=== PATIENT | female | born 1955 | race Caucasian/White ===

== ENCOUNTER 2023-10-29 09:15 | Outpatient (OUT) | payer OTHER, SELFPAY ==
[2023-10-29 09:55] LABS: Basophils Percent Auto 0.4 % (0.2-2.0); Eosinophils Absolute Auto 0.1 10^3/uL (0.0-0.7); Eosinophils Percent Auto 0.9 % (0.9-7.0); Hematocrit 40.8 % (36.0-48.0); Hemoglobin 12.8 g/dL (12.0-16.0); Immature Granulocytes Abs Auto 0.01 10^3/uL (0.00-0.03); Immature Granulocytes Pct Auto 0.1 % (0.0-0.5); Lymphocytes Absolute Auto 1.7 10^3/uL (1.2-3.8); Lymphocytes Percent Auto 24.8 % (20.5-60.0); Mean Corpuscular HGB Conc 31.4 g/dL (29.9-35.2); Mean Corpuscular Hemoglobin 25.8 pg (26.7-34.0); Mean Corpuscular Volume 82.3 fL (81.0-99.0); Mean Platelet Volume 10.9 fL (9.5-13.5); Monocytes Absolute Auto 0.4 10^3/uL (0.3-0.8); Monocytes Percent Auto 5.9 % (1.7-12.0); Neutrophils Absolute Auto 4.7 10^3/uL (1.4-6.5); Neutrophils Percent Auto 67.9 % (43.0-75.0); Platelet Count 221 10^3/uL (150-450); Red Blood Count 4.96 10^6/uL (4.20-5.40); Red Cell Distribution Width 14.2 % (11.0-15.0)
[2023-10-29 10:30] LABS: Microalbumin Urine Random <1.3 mg/dL (<=30.0)
[2023-10-29 10:46] LABS: Alanine Aminotransferase 18 U/L (14-59); Albumin Globulin Ratio 0.9; Albumin Level 3.7 g/dL (3.4-5.0); Alkaline Phosphatase 117 U/L (46-116); Anion Gap 8.8; Aspartate Amino Transferase 18 U/L (15-37); Bilirubin Total 0.4 mg/dL (0.2-1.0); Calcium 9.5 mg/dL (8.5-10.1); Carbon Dioxide 34.3 mmol/L (21.0-32.0); Chloride 97 mmol/L (98-107); Chol HDL Ratio 3.4; Cholesterol 178 mg/dL (<=200); Estimated GFR (African America >60 (>=60); Estimated GFR (Non-African Ame >60 (>=60); Globulin 4.1 g/dL; Glucose 114 mg/dL (74-106); HDL Cholesterol 53 mg/dL (40-60); LDL Cholesterol Calculated 105.6 mg/dL; Potassium 3.1 mmol/L (3.5-5.1); Sodium 137 mmol/L (136-145); Thyroid Stimulating Hormone 2.166 uIU/mL (0.358-3.740); Total Protein 7.8 g/dL (6.4-8.2); Triglycerides 97 mg/dL (<=150); VLDL CHOLESTEROL 19.4 mg/dL
[2023-10-29 14:09] LABS: Free T4 1.31 ng/dL (0.76-1.46)
== END 2023-10-29 09:16 | disposition home or self-care (01) ==
LOC: LAB 09:18
PROVIDERS: PCP Family Medicine; Visit Provider Family Medicine
DX: D64.9 Anemia, unspecified (principal); E03.9 Hypothyroidism, unspecified; I10 Essential (primary) hypertension
CPT/HCPCS: 36415; 80053; 80061; 82043; 82728; 84439; 84443; 85025

== ENCOUNTER 2024-07-28 09:49 | Outpatient (OUT) | payer MEDICARE, SELFPAY ==
--- OUTSIDE RECORDS SUMMARY | 2024-07-28 09:55 | XMS_ITS | CCD ---
Author Organization [facility] Care Team Providers Care Vessel Slagman Name Role Phone DR ANGLE NICOLAS Admitting Unavailable MARION, DR ANGLE Conteh Primary Care Unavailable MARION, DR ANGLE Conteh Consulting Unavailable MARION, DR ANGLE Conteh Attending Unavailable MARION, DR ANGLE Conteh Admitting Unavailable MARION, DR ANGLE Conteh Primary Care Unavailable MARION, DR ANGLE Conteh Consulting Unavailable MARION, DR ANGLE Conteh Attending Unavailable ANGLE NICOLAS Primary Care Physician MD Angle Nicolas Primary Care Provider [phone] [facility]- Paola Conteh Emergency Provider Paola Banks Admitting Unavailable Paola Banks Attending Unavailable Angle Nicolas Primary Care Unavailable Allergies Allergy Classification Reported Allergen(s) Allergy Type Date of Onset Reaction(s) Facility Penicillins (antibiotic) (2 sources) Penicillin G Benzathine Drug Allergy 4 Rash, Unknown Reaction [facility] Sulfonamides (antibiotic) (2 sources) Sulfonamides (Antibiotic) Drug Allergy 4 Unknown Reaction [facility] (5 sources) Penicillins; Translations: [penicillins] Drug allergy 4 Unknown (qualifier value) [facility] (4 sources) Penicillin G Benzathine; Translations: [penicillin G benzathine] Allergy to substance 4 Rash [facility] (4 sources) Sulfacetamide; Translations: [sulfacetamide] Drug Allergy 4 Unknown Reaction [facility] (4 sources) Sulfonamides (Antibiotic); Translations: [Sulfa (Sulfonamide Antibiotics)] Allergy to substance 4 Unknown Reaction [facility] Medications Current Medications Medication Drug Class(es) Dates Sig (Normalized) Sig (Original) atorvastatin 40 mg oral tablet (8 sources) HMG-CoA Reductase Inhibitor Start: 11-14-2023 End: 05-08-2024 take 1 tablet by mouth once daily Atorvastatin 40 mg tablet Active 0 .ROUTE .COMPLEX May 08, 2024 1:12pm Take 1 tablet by mouth once daily Start: 10-24-2023 End: 11-14-2023 take 1 tablet by mouth once daily Atorvastatin 40 mg tablet Discontinued 40 MG PO Daily October 23, 2023 11:00pm November 14, 2023 11:31am levothyroxine sodium 0.088 mg oral tablet (9 sources) l-Thyroxine Start: 11-07-2023 End: 05-13-2024 take 1 tablet by mouth once daily in the morning Levothyroxine 88 mcg tablet Active 0 .ROUTE .COMPLEX May 13, 2024 12:57pm TAKE 1 TABLET BY MOUTH ONCE DAILY IN THE MORNING Start: 10-24-2023 End: 11-07-2023 take 1 tablet by mouth once daily Levothyroxine 88 mcg tablet Discontinued 88 MCG PO Daily October 23, 2023 11:00pm November 07, 2023 12:48pm Start: 11-10-2014 take 1 tablet by luke th once daily levothyroxine 50 mcg (0.05 mg) Tab 50 microgram = 1 tab(s), Oral, Daily, Refills(s) 0 Start Date: 11/10/14 Status: Ordered losartan potassium 50 mg oral tablet (7 sources) Angiotensin 2 Receptor Marquita Start: 05-05-2024 End: 07-07-2024 take 1 tablet by mouth once daily Losartan 50 mg tablet Active 0 .ROUTE .COMPLEX July 07, 2024 12:44pm Take 1 tablet by mouth once daily Start: 10-29-2023 End: 05-05-2024 take 1 tablet by mouth once daily Losartan 50 mg tablet Discontinued 50 MG PO daily January 17, 2024 9:31am May 05, 2024 4:39pm Completed/Discontinued Medications Medication Drug Class(es) Dates Sig (Normalized) Sig (Original) dexamethasone 1 mg/ml / neomycin 3.5 mg/ml / polymyxin b 92503 unt/ml ophthalmic suspension (4 sources) Aminoglycoside Antibacterial, Polymyxin-class Antibacterial, Corticosteroid Start: 10-24-19 End: 12-31-19 take 1 drop(s) into the eye(s) every three hours Neomycin-Polymyxin B-Dexameth (Maxitrol) 3.5mg/mL-10,000 unit/mL-0.1 % drops,suspension Discontinued 1 DROPS EYE-RIGHT Every three hours 5 October 23, 2023 11:00pm December 31, 2023 7:55am hydroCHLOROthiazide 25 mg oral tablet (4 sources) Thiazide Diuretic Start: 10-24-19 End: 12-31-19 take 1 tablet by mouth once daily in the morning Hydrochlorothiazide 25 mg tablet Discontinued 25 MG PO Every morning October 23, 2023 11:00pm December 31, 2023 7:58am polyethylene glycol 3350 with electrolytes Oral Pwdr for Cathy 4000 mL (GoLytely) (1 source) Start: 11-12-19 polyethylene glycol 3350 with electrolytes Oral Pwdr for Cathy 4000 mL (GoLytely) 240 mL, Oral, q10min, 1 EA, Refill(s) 0 Start Date: 11/11/14 Status: Ordered Semaglutide (Weight Loss) (2 sources) Start: 12-31-19 End: 07-28-19 Semaglutide (Weight Loss) (Wegovy) 0.25 mg/0.5 mL pen injector Discontinued 0.25 MG SUBCUT every week 2 December 30, 2023 11:00pm July 28, 2024 9:07am administer weeks 1 through 4 of therapy Start: 12-31-2023 Semaglutide (W eight Loss) (Wegovy) 0.25 mg/0.5 mL pen injector Active 0.25 MG SUBCUT every week 2 December 31, 2023 12:00am administer weeks 1 through 4 of therapy Problems Active Problems Problem Classification Problem Date Documented Date Episodic/Chronic Deficiency and other anemia (3 sources) Anemia; Translations: [Anemia, unspecified] 10-29-2023 Episodic Diabetes mellitus without complication (1 source) Other abnormal glucose; Translations: [OTHER ABNORMAL GLUCOSE] Onset: 07-14-2021 Episodic Disorders of lipid metabolism (5 sources) Hyperlipidemia, unspecified; Translations: [HYPERLIPIDEMIA UNSPECIFIED] Onset: 10-27-2020 Chronic Essential hypertension (10 sources) Essential (primary) hypertension; Translations: [Hypertensive disorder] Onset: 07-14-2021 10-24-2023 Chronic Inflammation; infection of eye (except that caused by tuberculosis or sexually transmitteddisease) (4 sources) Conjunctivitis of right eye; Translations: [Unspecified conjunctivitis] 10-24-2023 Episodic Other nutritional; endocrine; and metabolic disorders (2 sources) Severe obesity; Translations: [Morbid (severe) obesity due to excess calories] 12-31-2023 Chronic Other nutritional; endocrine; and metabolic disorders (1 source) Morbid (severe) obesity due to excess calories; Translations: [Morbid obesity] 12-31-2023 Chronic Other screening for suspected conditions (not mental disorders or infectious disease) (2 sources) Patient encounter status; Translations: [Encounter for screening mammogram for malignant neoplasm of breast] 07-28-2024 Episodic Other upper respiratory disease (4 sources) Bleeding from nose; Translations: [Epistaxis] 10-24-2023 Episodic Other upper respiratory disease (2 sources) Epistaxis; Translations: [Epistaxis] Onset: 10-24-2023 10-29-2023 Episodic Thyroid disorders (11 sources) Hypothyroidism, unspecified; Translations: [Hypothyroidism] Onset: 07-08-2021 Chronic Past or Other Problems Problem Classification Problem Date Documented Da te Episodic/Chronic Unclassified (1 source) Exposure to 2019 novel coronavirus; Translations: [Contact with and (suspected) exposure to COVID19] Results Test Name Value Interpretation Reference Range Facility Basophils Auto (Bld) [#/Vol] on 10-29-2023 Basophils (Bld) [#/Vol] 0.0 10 3/uL 0.0-0.1 [facility] Basophils/100 WBC Auto (Bld) on 10-29-2023 Basophils/100 WBC (Bld) 0.4 % 0.2-2.0 [facility] Cholesterol in LDL Calc [Mas s/Vol]on 10-29-2023 Cholesterol in LDL [Mass/Vol] 105.6 mg/dL [facility] Comment on above: <100 mg/dl [id number] 0-129 mg/dl NEAR OR ABOVE [id number] mg/dl BORDERLINE MYJZ502-646 mg/dl HIGH>190 mg/dl VERY HIGH Cholesterol in VLDL Calc [Ma ss/Vol]on 10-29-2023 Cholesterol in VLDL [Mass/Vol] 19.4 mg/dL [facility] Eosinophils/100 WBC Auto (Bl d)on 10-29-2023 Eosinophils/100 WBC (Bld) 0.9 % 0.9-7.0 [facility] Erythrocyte distribution wid th Auto (RBC) [Ratio]on 10-29-2023 Erythrocyte distribution width (RBC) [Ratio] 14.2 % 11.0-15.0 [facility] Estimated glomerular filtrat ion rate (GFR) non- Americanon 10-29-2023 GFR/1.73 sq M.predicted among non-blacks MDRD (S/P/Bld) [Vol rate/Area] mL/min/{1.73_m2} >=60 [facility] Globulin Calc (S) [Mass/Vol] on 10-29-2023 Globulin (S) [Mass/Vol] 4.1 g/dL [facility] Hematocrit Auto (Bld) [Volum e fraction]on 10-29-2023 Hematocrit (Bld) [Volume fraction] 40.8 % 36.0-48.0 [facility] Hemoglobin [Mass/volume] in Bloodon 10-29-2023 Hemoglobin (Bld) [Mass/Vol] 12.8 g/dL 12.0-16.0 [facility] Laboratory - Chemistry and C hemistry - challengeon 10-29-2023 Albumin [Mass/Vol] 3.7 g/dL 3.4-5.0 [facility] ALP [Catalytic activity/Vol] 117 U/L High 46-116 [facility] ALT [Catalytic activity/Vol] 18 U/L 14-59 [facility] AST [Catalytic activity/Vol] 18 U/L 15-37 [facility] Bilirubin [Mass/Vol] 0.4 mg/dL 0.2-1.0 [facility] Calcium [Mass/Vol] 9.5 mg/dL 8.5-10.1 [facility] Chloride [Moles/Vol] 97 mmol/L Low 98-107 [facility] Cholesterol [Mass/Vol] 178 mg/dL <=200 [facility] Cholesterol in HDL [Mass/Vol] 53 mg/dL 40-60 [facility] Comment on above: > or =60 mg/dl - LOW CARDIOVASCULAR RISK<40 mg/dl - HIGH CARDIOVASCULAR RISK CO2 [Moles/Vol] 34.3 mmol/L High 21.0-32.0 [facility] Creatinine [Mass/Vol] 0.80 mg/dL 0.55-1.[address] [facility] Ferritin [Mass/Vol] 54.0 ng/mL 8.0-252.0 [facility] Free T4 [Mass/Vol] 1.31 ng/dL 0.76-1.46 [facility] GFR/1.73 sq M.predicted MDRD (S/P/Bld) [Vol rate/Area] mL/min/{1.73_m2} >=60 [facility] Glucose [Mass/Vol] 114 mg/dL High 74-106 [facility] Potassium [Moles/Vol] 3.1 mmol/L Low 3.5-5.[address] [facility] Protein [Mass/Vol] 7.8 g/dL 6.4-8.2 [facility] Sodium [Moles/Vol] 137 mmol/L 136-145 [facility] Triglyceride [Mass/Vol] 97 mg/dL <=150 [facility] TSH Qn 2.166 m[IU]/L 0.358-3.740 [facility] Urea nitrogen [Mass/Vol] 12.0 mg/dL 7.0-18.0 [facility] Urea nitrogen/Creatinine [Mass ratio] 15.0 mg/mg [facility] - Hematology and Cell countson 10-29-2023 Immature granulocytes/100 WBC (Bld) 0.1 % 0.0-0.5 [facility] Leukocytes [#/volume] correc brandon for nucleated erythrocytes in Blood by Automated counon 10-29-2023 WBC corrected for nucl RBC Auto (Bld) [#/Vol] 7.0 10 3/uL 4.0-11.0 [facility] Lymphocytes Auto (Bld) [#/Vo l]on 10-29-2023 Lymphocytes (Bld) [#/Vol] 1.7 10 3/uL 1.2-3.8 [facility] Lymphocytes/100 WBC Auto (Bl d)on 10-29-2023 Lymphocytes/100 WBC (Bld) 24.8 % 20.5-60.0 [facility] MCH Auto (RBC) [Entitic mass ]on 10-29-2023 MCH (RBC) [Entitic mass] 25.8 pg Low 26.7-34.0 [facility] MCHC Auto (RBC) [Mass/Vol]on 10-29-2023 MCHC (RBC) [Mass/Vol] 31.4 g/dL 29.9-35.[address] [facility] MCV Auto (RBC) [Entitic vol] on 10-29-2023 MCV (RBC) [Entitic vol] 82.3 fL 81.0-99.0 [facility] Microalbumin [Mass/volume] i n Urineon 10-29-2023 Albumin DL <= 20 mg/L (U) [Mass/Vol] mg/dL <=30.0 [facility] Monocytes Auto (Bld) [#/Vol] on 10-29-2023 Monocytes (Bld) [#/Vol] 0.4 10 3/uL 0.3-0.8 [facility] Monocytes/100 WBC Auto (Bld) on 10-29-2023 Monocytes/100 WBC (Bld) 5.9 % 1.7-12.0 [facility] Neutrophils Auto (Bld) [#/Vo l]on 10-29-2023 Neutrophils (Bld) [#/Vol] 4.7 10 3/uL 1.4-6.5 [facility] Neutrophils/100 WBC Auto (Bl d)on 10-29-2023 Neutrophils/100 WBC (Bld) 67.9 % 43.0-75.0 [facility] No Panel Informationon 10-28 Eosinophils # (Auto) 0.1 10 3/uL 0.0-0.[address] [facility] Immature Granulocyte # (Auto) 0.01 10 3/uL 0.00-0.03 [facility] Platelet mean volume Auto (B ld) [Entitic vol]on 10-29-2023 Platelet mean volume (Bld) [Entitic vol] 10.9 fL 9.5-13.5 [facility] Platelets Auto (Bld) [#/Vol] on 04-29-2024 Platelets (Bld) [#/Vol] 221 10 3/uL 150-450 [facility] RBC Auto (Bld) [#/Vol]on RBC (Bld) [#/Vol] 4.96 10 6/uL 4.20-5.40 [facility] Serum or plasma albumin/glob ulin mass ratioon 10-29-2023 Albumin/Globulin [Mass ratio] 0.9 {ratio} [facility] Serum or plasma anion gap de terminationon 10-29-2023 Anion gap [Moles/Vol] 8.8 mmol/L [facility] Serum or plasma total choles terol/high density lipoprotein (HDL) cholesterol mass ben 10-29-2023 Cholesterol.total/Cho lesterol in HDL [Mass ratio] 3.4 {ratio} [facility] Comment on above: 3.3 - 4.4 LOW RISK4. 4 - 7.1 AVERAGE RISK7.1 - 11.0 MODERATE RISK>11.0 HIGH RISK Coding Summary.on 07-22-2021 Coding Summary. CD:[id number] Gh0bWw+PGhlYWQ+PE1FV STfA04wfXJndC2KQ7oZR Y8QKGLKEUFVWD1VDA2vz VF8YTkmJ0WtfcTp XmpjtEVlIY16CKu9TEQ8 lXgbJOhywU8niHFgM4v8 JjOvQG11pH60QNvzSEMg QfF5GdJngzxptXFv N3heHzCzxJIhPii+PHRh YmxlIHdpZHRoPScxMDAl VpMrvNwrKP1nTc6kFXRo LWNvbGxhcHNlOiBj k3qpWIMbGRinQZ3jvXcg H3ApsUV2JUHuq0m4Yv32 dHI+MGJwHDC5sWfxDRey a499OwTsu6osQMP9 rUAfHVzcCOD5I37sf9D3 YROaIIXyASE3sNE7sL3e mPstikidH3TihHHqOsG6 AJJ2hFDpwY9vnZjp apmreB4uAii+K53WRG2J BEBUNV8HJym1N0WpNobp dHI+EN54YZOlLG04yJXm mNKky4sxqQp6RtLu KDKtDIP4dEvwQNhhw6Mz KYErC51pzRDcl4A2XIRp qHbmaFSuPhLsaBB8yJ1z WIvadelvl9oxgfaa Dryvb1lxnp94bW29O64k VKkbONDdCEQ1IVDvIMKq cZytvx3zhT7jJg6+IDxj r2ezm3zheNx7IvBb RQAzdlAibPpmOWA1x8Wy Pl13Z2NvkXeiz4EnCmi0 sx09nGCrz6A2oFI8YWvw UUWbmI0tJXprIoW4 SHPxFcIqvY07tKWdGVrw Do8yiXdoqCfaZP6rYEJk mofbXFQptU1cJYWgdBOw uSdtKG9ePPDoxhld o310GhQuPIX9VJScfRBv E7AsdN3aDcWnDPXdEOYs V0GnnXQaPJimW604SXyk FvS1HVJqjoPhE9Lp EUBryFxqIdR6c1W8Db9H s5EpblesDKB5STmhPWTo KxNtGjAtMnR1V8IsUim7 QWBiiKdyAL2bM3Fi JEJphiabglnoyJM7REJh ITLpwU54sFBaFHepIi9z h0B9p483YSLzJJUfbW09 Jh6uaMvbKOSouKVY rQ1bwtaqe5vgtrcdCqPb SZLwDLe7SYr8EIIavIuj VbQnVZI0XtD2WYZ0bEBv mK9fmJwolxstsU8e Oyc+Y83gxF2wEUZ9BCJ9 uldyNVMuiiNmVN73XU98 H3LjKybicGPydBY+PGRp axRokNymQO5mJfAu o3ajc9UiTOibM1OpQGFi RXviYsp5DFBzWTD5qYZ7 fS4kMKGqZYumt7F3qCW1 V5BhpaFprc3bw9dt ROBbLZwyH10vgNSxx6Q1 XBTumGA7VPThzWpjBgDs wJ84Qxr+ATTfgSqhv1Tx Qyzoe5wib3sfmHm1 IjMwJSIgdmFsaWduPSJ0 b9WdMq90D77gCFyuTUYl FTYwAZVvWVMmlFasrd4o eK2zVw6+PGNvbCB3 mZV8rD4wYRNjTfW3KEui L307AhGrvFRsZotin1af g8ozzAn3ZnIiHFEvahUz gTvtXNX1g4YfRu80 R36fGIjwWSJtVEWdTLKy FTRvdTrmff1kdX0rVh3+ RY3sw3yukp03sK59jIG+ RRPhCZV7gUxxFLlh GPNpxN8cXJqnIhN8BTTa IiJwuV93pYNsSDcvQh4l oUgilXxzOK9uVLCoidvi m536UaDye9pbVCKm mWQzAOwlGQK6A38dt2M7 TMSrLFZfQGC3jID3bE7f bGlnbjogbGVmdDsgdmVy aHjjQEtpRAicB969 IHRvcDsnPlBhdGllbnQg YkKuASr4C1HcVlu9PKDg xNxbIJ8jzEVoJWbkSs9i zBdrySpdXN4qGZCx fysgv719UzHos4dcVWDe vECeZOjbOTB2R52og5F3 VEWnUFFyYZD2pXX6vX2w bGlnbjogbGVmdDsg pxUosQwyXNvhRVfpB773 IHRvcDsnPkJpcnRoIERh nVY8VM92IE75lCXco4L8 tNY5T4ZbGRYolghl nminoJH9QKQyHNLmpJ83 Fx0llAnpSi0xPCRfHZR9 CRIbwLMrK5UczO0oLqVz USTmNDInF6EarDEy ERmcH069ZJeqAqA4HKHj kxPiF6MqDDSxgDidUyG7 p7V9Im2VQ1A4PR82NW79 eUDvn6C8xDH6Q6Pd YMVqinnfoknxsEN9AENy IOUjrU37Ql3yxRsdRx8i NXPsWIC4WCPmuBZqI6Ij aL4uCxWvXLBjMQTl K5UzaMNxIWwpL401TBzv LcZ1REPqlxPaY4VkTYVb cUmsHpI1u2A1Ti7XTSr4 JC62IT80dPIaz4X3 uBV4D7QeUVZtyycktmxl lGJ8NMIyEZNrcR58Yh1r gVetMk5sCTBgUBN1XDQw vIJeN5YznQ6aAiTx POKwKOLtM1NioOXwDOla I076EMqiCxP4TWQbqkPt L5KhQLKwiBxmFzS5n8B8 Vr6QYYHyEH38QLL0 sDY4IH15UA40C3VdRffh dGFibGU+PHRhYmxlIHdp ZHRoPScxMDAlJyBzdHls VI1vRc0tDGBkNNMr bWcghDPjWeIlr8ciAHDp UDabMW2weZgeW5LkzNU3 FCFuj1c0Ku39X42fB0Uj dXA+VXBqnQA6iUY9 pY0kAyJiRhT6DYzvJ992 EgJiyWBdVdvmo1mpg4mj iBv3IzQ1NIIsbjIqcQmk RLA2f4FzVz26H47l IHdpZHRoPSIxNSUiIHZh dCgsaa9gkG4eQk7+PGNv oEE5gZE0oN1sKgCfKlW6 XUgiN664AxYyxXJn Rsbuj5wdx5uarHk7RaUm NFXqawWmiRoeDJO3o1Is Rf83F3IvtSwqb8MsDfs2 gs98sDLzd2Q6lSA1 K6KrFNPavzlghJXbkXqw XK4aPVSjnlabYABiqH3t AJWkG3c4QnDyUbQ0JSvr Y1SqroK4BISweZIc TOavPIO1T98mz8L0JWZl STNfYSK7fKA5qQ3hqEgt bjogbGVmdDsgdmVydGlj TOrsEZsaL646CFGe fShpVYNtrA1cUZYfhNYp gKkvZJ2jQSJropbfGxGE OR7GIIRiVVMTI2gGLLs0 G4DvSkh9IGOmsEqf OD3yiMOfDKfmIf0bmWzd xVaoZU7wRYQjtmejEWWc oU3sUHRnnOTibUntFP7v HAWhmsohs966SeAu YTT5ZRZxhEGcL6BdfI2o HdThYSXsVLPcY4SgtDZp AZkuQ410ZGuqCtO5TDZy lmGhB2RvMSPjdEfj VzR6k1S4Pi4pTk9fYS7n HTA5EC02TP21nUTir9E2 hZG7M7HnTSZdknjslmry qKE9BBKvILJgvD32 xYYvOUozZl2wr6L5y229 JSQvHWTaiV13Ms0whXsz SJFkoZPYjA4eoydlq9kh cjogIzAwMDAwMDt0 BNn1FTEymBsdCoXcOXM4 CiJ6QZW2fKJsyV6ayOiq fidmaU8oPkk+NjYgWWVh cgX7P1SyVcw4FZPv aGyiBY4pnSBvGIiwEw9b qHaowIutSU0iYMLiliez TDXxwK0nSVMswMWmxPzu RI9vVGIhwweja976 CwUhLXJ0WQIaxONoR8Fn pZ4mEjSiEYOgWIJtY4At sOHwCLsiX435FAszVuE4 SASkkhBoQ6CbQCId oJaqGdJ5d1G2Yy5HON7i lQQ1U5BaVdb0JUAewGbr AN7fjGGkHBvtPj0wmLmu aPjxOE1qJLOddiem LCRqvB4bORMdfVCbaCxi AN4aNXQkyimkf876QuHz JQB2EBLuhNGcC2YwcD4r RuXaMPMpOGDmS2Pd pTViDFltG656DJliIhI4 GYElfcCaR0UxOUUcuWnp RvJ1h3A0Yy7ZBJI6ajLv igx2T6QhYqotrSN+ GM08PMCqOZ04vRFdlPDk d5dzhGp8BzQmBFAhGRW8 lUciYTmwr7ZfCSRjZ53k vJZyt9M8KPXrcTkl kXWqSbKxeKA6qT2hCEsp kfjck3wmibebVsfrt9oe ul14wJ87G00pPLrxLGFv PSIzMCUiIHZhbGln cj2cgS8bWn8+PGNvbCB3 aFZ2pL3rOiReFzX4NGtf O174KpNilELyQuoox8tt a8yehOo8TtReRUHo kkOkgEvfLUA3f0KkHu38 P77gSHjwVFHwKCDpNJRl BVVvmZqwzp9ioT4wOc4+ LI1sr0fxib98uA27 dHI+NECgGZH8uZzaCOsn ZEFwiM6zTJhgJzA9SNLe DaRnpA86kATbRGpzAk3b fEyocMkeGU3qOKKu jrvxp649DbByu1imMMZf sFWeRUyxDOD5G19me9J7 PBOqPVAjKFC4mDN4fX8m bGlnbjogbGVmdDsg whDjaVniZDyyBCbtV361 CLJetMbgQnUagAGrF4ox nyGMKZ5pYtrctVR+PHRk YBH1uNckTSnkSGCq pV9nLUEuB6f7FkZzWuI9 GZtnF9OyizO4BQCbrRVg PHYbhENYgP6brvsbk1ic cjogIzAwMDAwMDt0 IHz2LEOisAtdLeMfQUW1 PqY7IOI0bFKvbE0qoLfn nyrhoQ0xRzp+RklOOjwv dGQ+SKNsFFQ2wXax NXvnMAQtjZ7rRMRsA8r7 SsDzTsN7VXncG8YoakN9 AZYqfMRvGVLagTRYqQ6j zyzqv8fvzavgXuTg MHVvBBz3DKk7KZXhjGcu BtWrRIY7KuR2GQN0uLSo tE3lmNqetumqtC7pCgp+ TVJOOjwvdGQ+PHRk OYN2yRlzYVguGPEfrM9h AWNhE2x0SuKbIuA5MAmb B1XxgrZ2BCNkhWHqBKIi wEDSuU2nncgzs7pz adkhJwLoXFCrGUf3BSd4 VBIrmHkoDkCrOGE5XhH2 RIX7pSBfnT8eiJzfzbzx hT9lQio+ICG4CCT7 EU01GJ59B7RmFcdfzRQg bGU+PHRhYmxlIHdpZHRo EUdkXNVhUkOemXctRT1r Bv4qIEZbBQSymGye cHNl (more content not included)... Normal [facility] Consent for Treatmenton 07-02 Consent for Treatment [id number] #[id number] Normal [facility] MICRO OTHER TESTSOrdered By: Amanda Crisostomo on 07-19-2021 Rapid COV Int NEG Ctl Pass (07/19/21 8:51 AM) Normal [facility] Rapid COV Int POS Ctl Pass (07/19/21 8:51 AM) Normal [facility] SARS-CoV+SARS-CoV-2 (COVID-19) Ag IA.rapid Ql (Resp) Not Detected (07/19/21 8:51 AM) Normal Not Detected [facility] Rapid COVID Antigen ([facility])on 07-19-2021 Rapid COV Int NEG Ctl Pass Normal [facility] Comment on above: Performed By: #### [id number] #### [facility] [address] [place] [address] Rapid COV Int POS Ctl Pass Normal Fis [facility] Comment on above: Performed By: #### [id number] #### [facility] [address] [place] [address] SARS-CoV+SARS-CoV-2 (COVID-19) Ag IA.rapid Ql (Resp) Not detected Normal Not Detected [facility] Comment on above: Result Comment: The [employer] System for Rapid Detection of SARS-CoV-2 is a chromatographic digital immunoassay intended for the direct and qualitative detection of SARS-CoV-2 nucleocapsid antigens in nasal swabs from individuals who are suspected of COVID-19 by their healthcare provider within the first five days of the onset of symptoms. Negative results should be treated as presumptive, do not rule out SARS-CoV-2 infection and should not be used as the sole basis for treatment or patient management decisions, including infection control decisions. Negative results should be considered in the context of a patient?s recent exposures, history and the presence of clinical signs and symptoms consistent with COVID-19, and confirmed with a molecular assay, if necessary, for patient management. For in vitro diagnostic use. In the [place], only for use under an Emergency Use Authorization. In the [place], this test has not been FDA cleared or approved; this test has been authorized by FDA under an EUA for use by authorized laboratories; use by laboratories certified under the CLIA, 42 U.S.C. ?263a, that meet requirements to perform moderate, high, or waived complexity tests and at the Point of Care (POC), i.e., in patient care settings operating under a CLIA Certificate of Waiver, Certificate of Compliance, or Certificate of Accreditation. This test has been authorized only for the detection of proteins from SARS-CoV-2, not for any other viruses or pathogens; and, in the [place], this test is only authorized for the duration of the declaration that circumstances exist justifying the authorization of emergency use of in vitro diagnostics for detection and/or diagnosis of the virus that causes COVID-19 under Section 564(b)(1) of the Act, 21 U.S.C. ? 360bbb-3(b)(1), unless the authorization is terminated or revoked sooner. Performed By: #### 2 [id number] #### [facility] [address] [place] [address] Physician Orderon 07-18-2021 Physician Order [id number] #[id number]:127 Normal [facility] Rapid COVID Antigen (MC)on 07-18-2021 ADMITTED TO INTENSIVE CARE UNIT FOR CONDITION OF INTEREST:FIND:PT: Unknown Normal [facility] Comment on above: Performed By: #### 2 [id number] #### [facility] [address] [place] [address] EMPLOYED IN A HEALTHCARE SETTING:FIND:PT: Unknown Normal [facility] Comment on above: Performed By: #### 2 [id number] #### [facility] [address] [place] [address] FIRST TEST FOR CONDITION OF INTEREST:FIND:PT: Unknown Normal [facility] Comment on above: Performed By: #### 2 [id number] #### [facility] [address] [place] [address] HAS SYMPTOMS RELATED TO CONDITION OF INTEREST:FIND:PT: Unknown Normal [facility] Comment on above: Performed By: #### 2 [id number] #### [facility] [address] [place] [address] HOSPITALIZED FOR CONDITION OF INTEREST:FIND:PT: Unknown Normal [facility] Comment on above: Performed By: #### 2 [id number] #### [facility] [address] [place] [address] STATUS:FIND:PT: Unknown Normal [facility] Comment on above: Performed By: #### 2 [id number] #### [facility] [address] [place] [address] RESIDES IN A CONGREGATE CARE SETTING:FIND:PT: Unknown Normal [facility] Comment on above: Performed By: #### 2 [id number] #### [facility] [address] [place] [address] CBC AUTO DIFFon 07-08-2021 BASO # 0.0 103/ul Normal 0.0-0.1 [facility] Comment on above: Performed By: #### C BC #### [facility] [address] [address] [address] Kathy Blackburn Basophils/100 WBC (Bld) 0.4 % Normal 0.2-2.0 [facility] Comment on above: Performed By: #### C BC #### [facility] [address] [address] [address] Kathy Blackburn EO # 0.1 103/ul Normal 0.0-0.7 [facility] Comment on above: Performed By: #### C BC #### [facility] [address] [address] [address] Kathy Blackburn Eosinophils/100 WBC (Bld) 1.3 % Normal 0.9-7.0 [facility] Comment on above: Performed By: #### C BC #### [facility] [address] [address] [address] Kathy Blackburn Erythrocyte distribution width (RBC) [Ratio] 14.4 % Normal 11.0-15.0 [facility] Comment on above: Performed By: #### C BC #### [facility] [address] [address] [address] Kathy Blackburn Hematocrit (Bld) [Volume fraction] 42.5 % Normal 36.0-48.0 [facility] Comment on above: Performed By: #### C BC #### [facility] [address] [address] [address] Kathy Blackburn Hemoglobin (Bld) [Mass/Vol] 13.3 g/dL Normal 12.0-16.0 [facility] Comment on above: Performed By: #### C BC #### [facility] [address] [address] [address] Kathy Blackburn IG # 0.01 10e3/ul Normal 0.00-0.03 [facility] Comment on above: Performed By: #### C BC #### [facility] [address] [place] [address] Dr. Kathy Blackburn IG % 0.2 % Normal 0.0-0.5 [facility] Comment on above: Performed By: #### C BC #### [facility] [address] [place] [address] Dr. Kathy Blackburn LYMPH # 1.5 103/ul Normal 1.2-3.8 [facility] Comment on above: Performed By: #### C BC #### [facility] [address] [place] [address] Dr. Kathy Blackburn Lymphocytes/100 WBC (Bld) 32.2 % Normal 20.5-60.0 [facility] Comment on above: Performed By: #### C BC #### [facility] [address] [place] [address] Dr. Kathy Blackburn MANUAL DIFF REQ NO Normal [facility] Comment on above: Performed By: #### C BC #### [facility] [address] [place] [address] Dr. Kathy Blackburn MCH (RBC) [Entitic mass] 26.5 pg Critically low 26.7-34.0 [facility] Comment on above: Performed By: #### C BC #### [facility] [address] [place] [address] Dr. Kathy Blackburn MCHC (RBC) [Mass/Vol] 31.3 g/dL Normal 29.9-35.2 [facility] Comment on above: Performed By: #### C BC #### [facility] [address] [place] [address] Dr. Kathy Blackburn MCV (RBC) [Entitic vol] 84.8 fL Normal 81.0-99.0 [facility] Comment on above: Performed By: #### C BC #### [facility] [address] [place] [address] Dr. Kathy Blackburn MONO # 0.3 103/ul Normal 0.3-0.8 [facility] Comment on above: Performed By: #### C BC #### [facility] [address] [place] [address] Dr. Kathy Blackburn Monocytes/100 WBC (Bld) 6.6 % Normal 1.7-12.0 [facility] Comment on above: Performed By: #### C BC #### [facility] [address] [place] [address] Dr. Kathy Blackburn NEUT # 2.7 103/ul Normal 1.4-6.5 [facility] Comment on above: Performed By: #### C BC #### [facility] [address] [place] [address] Dr. Kathy Blackburn Neutrophils/100 WBC (Bld) 59.3 % Normal 43.0-75.0 [facility] Comment on above: Performed By: #### C BC #### [facility] [address] [place] [address] Dr. Kathy Blackburn Platelet mean volume (Bld) [Entitic vol] 9.9 fL Normal 9.5-13.5 [facility] Comment on above: Performed By: #### C BC #### [facility] [address] [place] [address] Dr. Kathy Blackburn PLT 204 103/ul Normal 150-450 [facility] Comment on above: Performed By: #### C BC #### [facility] [address] [place] [address] Dr. Kathy Blackburn RBC 5.01 106/ul Normal 4.20-5.40 [facility] Comment on above: Performed By: #### C BC #### [facility] [address] [place] [address] Dr. Kathy Blackburn WBC 4.6 103/ul Normal 4.0-11.0 [facility] Comment on above: Performed By: #### C BC #### [facility] [address] [place] [address] Dr. Kathy Blackburn FREE T4on 07-08-2021 Free T4 [Mass/Vol] 1.28 ng/dL Normal 0.78-2.19 [facility] Comment on above: Performed By: #### F T4 #### [facility] [address] [address] [address] Kathy Blackburn GLYCOHEMOGLOBIN A1Con 2021 ADA RECOMMENDATION ADA THERAPEUTIC TARGET 6.0 - 7.0 ACTION SUGGESTED > 7.0 Normal [facility] Comment on above: Performed By: #### A 1C #### [facility] [address] [address] [address] Kathy Blackburn Glucose [Mass/Vol] 128 mg/dL Normal [facility] Comment on above: Performed By: #### A 1C #### [facility] [address] [address] [address] Kathy Blackburn HbA1c (Bld) [Mass fraction] 6.1 % Critically high <=6.0 [facility] Comment on above: Performed By: #### A 1C #### [facility] [address] [place] [address] Dr. Kathy Blackburn LIPID PROFILEon 07-08-2021 CHOL-HDL RATIO NORM SEE BELOW Normal [facility] Comment on above: Result Comment: 3.3 - 4.4 LOW RISK 4.4 - 7.1 AVERAGE RISK 7.1 - 11.0 MODERATE RISK >11.0 HIGH RISK Performed By: #### L IPID, TSH, CMP #### [facility] [address] [place] [address] Dr. Kathy Blackburn Cholesterol [Mass/Vol] 151 mg/dL Normal <=200 [facility] Comment on above: Performed By: #### L IPID, TSH, CMP #### [facility] [address] [address] [address] Kathy Blackburn Cholesterol in HDL [Mass/Vol] 59 mg/dL Normal [facility] Comment on above: Performed By: #### L IPID, TSH, CMP #### [facility] [address] [place] [address] Dr. Kathy Blackburn Cholesterol in LDL [Mass/Vol] 70.0 mg/dL Normal [facility] Comment on above: Performed By: #### L IPID, TSH, CMP #### [facility] [address] [place] [address] Dr. Kathy Blackburn Cholesterol.total/Cho lesterol in HDL [Mass ratio] 2.6 {ratio} Normal [facility] Comment on above: Performed By: #### L IPID, TSH, CMP #### [facility] [address] [place] [address] Dr. Kathy Blackburn HDL NORMAL > or = 60 mg/dl - LOW CARDIOVASCULAR RISK <40 mg/dl - HIGH CARDIOVASCULAR RISK Normal [facility] Comment on above: Performed By: #### L IPID, TSH, CMP #### [facility] [address] [place] [address] Dr. Kathy Blackburn LDL CALC NORMAL SEE BELOW Normal [facility] Comment on above: Result Comment: <100 mg/dl OPTIMAL 100 - 129 mg/dl NEAR OR ABOVE OPTIMAL 130 - 159 mg/dl BORDERLINE HIGH 160 - 189 mg/dl HIGH >190 mg/dl VERY HIGH Performed By: #### L IPID, TSH, CMP #### [facility] [address] [place] [address] Dr. Kathy Blackburn Triglyceride [Mass/Vol] 110 mg/dL Normal <=150 [facility] Comment on above: Performed By: #### L IPID, TSH, CMP #### [facility] [address] [place] [address] Dr. Kathy Blackburn VLDL CALC 22.0 mg/dL Normal [facility] Comment on above: Performed By: #### L IPID, TSH, CMP #### [facility] [address] [place] [address] Dr. Kathy Blackburn PROF 14(COMP METB)on 022 Albumin [Mass/Vol] 3.6 g/dL Normal 3.5-5.0 [facility] Comment on above: Performed By: #### L IPID, TSH, CMP #### [facility] [address] [place] [address] Dr. Kathy Blackburn Albumin/Globulin [Mass ratio] 0.9 {ratio} Normal [facility] Comment on above: Performed By: #### L IPID, TSH, CMP #### [facility] [address] [place] [address] Dr. Kathy Blackburn ALP [Catalytic activity/Vol] 105 U/L Normal 38-126 [facility] Comment on above: Performed By: #### L IPID, TSH, CMP #### [facility] [address] [place] [address] Dr. Kathy Blackburn ALT [Catalytic activity/Vol] 21 U/L Normal 9-52 [facility] Comment on above: Performed By: #### L IPID, TSH, CMP #### [facility] [address] [place] [address] Dr. Kathy Blackburn Anion gap [Moles/Vol] 8.3 mmol/L Normal [facility] Comment on above: Performed By: #### L IPID, TSH, CMP #### [facility] [address] [place] [address] Dr. Kathy Blackburn AST [Catalytic activity/Vol] 16 U/L Normal 14-36 [facility] Comment on above: Performed By: #### L IPID, TSH, CMP #### [facility] [address] [place] [address] Dr. Kathy Blackburn Bilirubin [Mass/Vol] 0.5 mg/dL Normal 0.2-1.3 [facility] Comment on above: Performed By: #### L IPID, TSH, CMP #### [facility] [address] [place] [address] Dr. Kathy Blackburn Calcium [Mass/Vol] 9.5 mg/dL Normal 8.4-10.2 [facility] Comment on above: Performed By: #### L IPID, TSH, CMP #### [facility] [address] [place] [address] Dr. Kathy Blackburn Chloride [Moles/Vol] 102 mmol/L Normal 98-107 [facility] Comment on above: Performed By: #### L IPID, TSH, CMP #### [facility] [address] [place] [address] Dr. Kathy Blackburn CO2 [Moles/Vol] 34.7 mmol/L Critically high 22.0-30.0 [facility] Comment on above: Performed By: #### L IPID, TSH, CMP #### [facility] [address] [address] [address] Kathy Blackburn Creatinine [Mass/Vol] 0.78 mg/dL Normal 0.52-1.04 [facility] Comment on above: Performed By: #### L IPID, TSH, CMP #### [facility] [address] [address] [address] Kathy Blackburn EGFR-AF JORDANIAN >60 Normal >=60 [facility] [place] Comment on above: Performed By: #### L IPID, TSH, CMP #### [facility] [address] [address] [address] Kathy Blackburn EGFR-NON AF JORDANIAN >60 Normal >=60 [facility] Comment on above: Performed By: #### L IPID, TSH, CMP #### [facility] [address] [address] [address] Kathy Blackburn Globulin (S) [Mass/Vol] 4.1 g/dL Normal [facility] Comment on above: Performed By: #### L IPID, TSH, CMP #### [facility] [address] [address] [address] Kathy Blackburn Glucose [Mass/Vol] 103 mg/dL Normal 74-[address] [facility] Comment on above: Performed By: #### L IPID, TSH, CMP #### [facility] [address] [address] [address] Kathy Blackburn Potassium [Moles/Vol] 4.0 mmol/L Normal 3.4-5.0 [facility] Comment on above: Performed By: #### L IPID, TSH, CMP #### [facility] [address] [address] [address] Kathy Blackburn Protein [Mass/Vol] 7.7 g/dL Normal 6.1-8.[address] [facility] Comment on above: Performed By: #### L IPID, TSH, CMP #### [facility] [address] [address] [address] Kathy Blackburn Sodium [Moles/Vol] 141 mmol/L Normal 137-[address] [facility] Comment on above: Performed By: #### L IPID, TSH, CMP #### [facility] [address] [place] [address] Dr. Kathy Blackburn Urea nitrogen [Mass/Vol] 14.0 mg/dL Normal 7.0-17.0 [facility] Comment on above: Performed By: #### L IPID, TSH, CMP #### [facility] [address] [place] [address] Dr. Kathy Blackburn Urea nitrogen/Creatinine [Mass ratio] 17.9 mg/mg Normal [facility] Comment on above: Performed By: #### L IPID, TSH, CMP #### [facility] [address] [place] [address] Dr. Kathy Blackburn TSHon 07-08-2021 TSH 2.894 uIU/mL Normal 0.470-4.680 [facility] Comment on above: Performed By: #### L IPID, TSH, CMP #### [facility] [address] [place] [address] Dr. Kathy Blackburn TSH RANGE SEE BELOW Normal [facility] Comment on above: Result Comment: <0.3 4 UIU/ml HYPERTHYROID 0.34-5.60 UIU/ml EUTHYROID >5.60 UIU/ml HYPOTHYROID Performed By: #### L IPID, TSH, CMP #### [facility] [address] [place] [address] Dr. Kathy Blackburn LIPID PROFILEon 10-27-2020 CHOL-HDL RATIO NORM SEE BELOW Normal [facility] Comment on above: Result Comment: 3.3 - 4.4 LOW RISK 4.4 - 7.1 AVERAGE RISK 7.1 - 11.0 MODERATE RISK >11.0 HIGH RISK Performed By: #### L IPID, CMP #### [facility] [address] [place] [address] Amish Caryn Cholesterol [Mass/Vol] 137 mg/dL Normal <=200 [facility] Comment on above: Performed By: #### L IPID, CMP #### [facility] [address] [place] [address] [place] C[place] Cholesterol in HDL [Mass/Vol] 44 mg/dL Normal [facility] Comment on above: Performed By: #### L IPID, CMP #### [facility] [address] [id number] [place] Caryn Cholesterol in LDL [Mass/Vol] 71.8 mg/dL Normal [facility] Comment on above: Performed By: #### L IPID, CMP #### [facility] [address] [id number] [place] C[place] Cholesterol.total/Cho lesterol in HDL [Mass ratio] 3.1 {ratio} Normal [facility] Comment on above: Performed By: #### L IPID, CMP #### [facility] [address] [id number] [place] Caryn HDL NORMAL > or = 60 mg/dl - LOW CARDIOVASCULAR RISK <40 mg/dl - HIGH CARDIOVASCULAR RISK Normal [facility] Comment on above: Performed By: #### L IPID, CMP #### [facility] [address] [place] [address] Amish Caryn LDL CALC NORMAL SEE BELOW Normal [facility] Comment on above: Result Comment: <100 mg/dl OPTIMAL 100 - 129 mg/dl NEAR OR ABOVE OPTIMAL 130 - 159 mg/dl BORDERLINE HIGH 160 - 189 mg/dl HIGH >190 mg/dl VERY HIGH Performed By: #### L IPID, CMP #### [facility] [address] [address] Am[place] Caryn Triglyceride [Mass/Vol] 106 mg/dL Normal <=150 [facility] Comment on above: Performed By: #### L IPID, CMP #### [facility] [address] [place] [address] Amish Caryn VLDL CALC 21.2 mg/dL Normal [facility] Comment on above: Performed By: #### L IPID, CMP #### [facility] [address] [id number] [place]ish[place] Yipen PROF 14(COMP METB)on 021 Albumin [Mass/Vol] 3.6 g/dL Normal 3.5-5.0 [facility] Comment on above: Performed By: #### L IPID, CMP #### [facility] [address], [place] [address] Amish Caryn Albumin/Globulin [Mass ratio] 0.9 {ratio} Normal [facility] Comment on above: Performed By: #### L IPID, CMP #### [facility] [address], [place] [address] Amish Caryn ALP [Catalytic activity/Vol] 102 U/L Normal 38-126 [facility] Comment on above: Performed By: #### L IPID, CMP #### [facility] [address], [place] [address] Am[place] Caryn ALT [Catalytic activity/Vol] 22 U/L Normal 9-52 [facility] Comment on above: Performed By: #### L IPID, CMP #### [facility] [address], [place] [address] Am[place] Caryn Anion gap [Moles/Vol] 11.7 mmol/L Normal [facility] Comment on above: Performed By: #### L IPID, CMP #### [facility] [address] [id number] [place] Caryn AST [Catalytic activity/Vol] 16 U/L Normal 14-36 [facility] Comment on above: Performed By: #### L IPID, CMP #### [facility] [address] [id number] [place] Caryn Bilirubin [Mass/Vol] 0.6 mg/dL Normal 0.2-1.3 [facility] Comment on above: Performed By: #### L IPID, CMP #### [facility] [address] [id number] [place] Caryn Calcium [Mass/Vol] 9.2 mg/dL Normal 8.4-10.2 [facility] Comment on above: Performed By: #### L IPID, CMP #### [facility] [address] [id number] [place] Caryn Chloride [Moles/Vol] 101 mmol/L Normal 98-107 [facility] Comment on above: Performed By: #### L IPID, CMP #### [facility] [address] [id number] [place] Caryn CO2 [Moles/Vol] 32.6 mmol/L Critically high 22.0-30.0 [facility] Comment on above: Performed By: #### L IPID, CMP #### [facility] [address] [id number] Amish Carny Creatinine [Mass/Vol] 0.83 mg/dL Normal 0.52-1.04 [facility] Comment on above: Performed By: #### L IPID, CMP #### [facility] [address] [id number] [place] EGFR-AF JORDANIAN >60 Normal >=60 [facility] [place] Comment on above: Performed By: #### L IPID, CMP #### [facility] [address] [address] [place] EGFR-NON AF JORDANIAN >60 Normal >=60 [facility] Comment on above: Performed By: #### L IPID, CMP #### [facility] [address] [address] [place] Caryn Globulin (S) [Mass/Vol] 4.0 g/dL Normal [facility] Comment on above: Performed By: #### L IPID, CMP #### [facility] [address] [address] Am[place] Caryn Glucose [Mass/Vol] 112 mg/dL Critically high 74-106 [facility] Comment on above: Performed By: #### L IPID, CMP #### [facility] [address] [address] [place] Caryn Potassium [Moles/Vol] 3.3 mmol/L Critically low 3.4-5.0 [facility] Comment on above: Performed By: #### L IPID, CMP #### [facility] [address] [id number] [place] C[place] Protein [Mass/Vol] 7.6 g/dL Normal 6.1-8.[address] [facility] Comment on above: Performed By: #### L IPID, CMP #### [facility] [address], [place] [address] [place] Sodium [Moles/Vol] 142 mmol/L Normal 137-145 [facility] Comment on above: Performed By: #### L IPID, CMP #### [facility] [address], [place] [address] Am[place] Caryn Urea nitrogen [Mass/Vol] 16.0 mg/dL Normal 7.0-17.0 [facility] Comment on above: Performed By: #### L IPID, CMP #### [facility] [address], [place] [address] Am[place] Caryn Urea nitrogen/Creatinine [Mass ratio] 19.3 mg/mg Normal [facility] Comment on above: Performed By: #### L IPID, CMP #### [facility] [address], [place] [address] [place] C[place] Vital Signs Date Time Vital Sign Value Performing Clinician Faci lity 07-28-2024 08:58-0500 Body height 157.48 cm [facility] 07-28-2024 08:58-0500 Body mass index (BMI) [Ratio] 40.2 kg/m2 [facility] 07-28-2024 08:58-0500 Body weight 99.79 kg [facility] 07-28-2024 08:58-0500 Diastolic blood pressure 81 mm[Hg] [facility] 07-28-2024 08:58-0500 Heart rate 73 /min [facility] 07-28-2024 08:58-0500 Systolic blood pressure 142 mm[Hg] [facility] 12-31-2023 08:50-0400 Body height 157.48 cm MD Angle Nicolas Work Phone: [facility] 12-31-2023 08:50-0400 Body mass index (BMI) [Ratio] 40.8 kg/m2 MD Angle Nicolas Work Phone: [facility] 12-31-2023 08:50-0400 Body weight 101.15 kg MD Angle Nicolas Work Phone: [facility] 12-31-2023 08:50-0400 Diastolic blood pressure 75 mm[Hg] MD Angle Nicolas Work Phone: [facility] 12-31-2023 08:50-0400 Heart rate 68 /min MD Angle Nicolas Work Phone: [facility] 12-31-2023 08:50-0400 Systolic blood pressure 130 mm[Hg] MD Angle Nicolas Work Phone: [facility] 10-29-2023 08:23-0400 Body height 157.48 cm MD Angle Nicolas Work Phone: [facility] 10-29-2023 08:23-0400 Body mass index (BMI) [Ratio] 38.7 kg/m2 MD Angle Nicolas Work Phone: [facility] 10-29-2023 08:23-0400 Body weight 96.16 kg MD Angle Nicolas Work Phone: [facility] 10-29-2023 08:23-0400 Diastolic blood pressure 78 mm[Hg] MD Angle Nicolas Work Phone: [facility] 10-29-2023 08:23-0400 Heart rate 77 /min MD Angle Nicolas Work Phone: [facility] 10-29-2023 08:23-0400 Systolic blood pressure 148 mm[Hg] MD Angle Nicolas Work Phone: [facility] 10-24-2023 15:18-0400 Diastolic blood pressure 92 mm[Hg] MD Angle Nicolas Work Phone: [facility] 10-24-2023 15:18-0400 Systolic blood pressure 154 mm[Hg] MD Angle Nicolas Work Phone: [facility] 10-24-2023 15:15-0400 Body height 157.48 cm MD Angle Nicolas Work Phone: [facility] 10-24-2023 15:15-0400 Body temperature 98.3 [degF] MD Angle Nicolas Work Phone: [facility] 10-24-2023 15:15-0400 Body weight 97.6 kg MD Angle Nicolas Work Phone: [facility] 10-24-2023 15:15-0400 Heart rate 83 /min MD Angle Nicolas Work Phone: [facility] 10-24-2023 15:15-0400 Respiratory rate 18 /min MD Angle Nicolas Work Phone: [facility] 10-24-2023 15:15-0400 SaO2% (BldA) [Mass fraction] 96 % MD Angle Nicolas Work Phone: [facility] Encounters Encounter Date Encounter Type Care Provider Facility Start: 07-28-2024 End: 07-28-2024 ambulatory [facility] Work Phone: Start: 07-28-2024 End: 07-28-2024 Patient encounter procedure [facility] Work Phone: Start: 12-31-2023 End: 12-31-2023 ambulatory MD Angle Nicolas Work Phone: [facility] Work Phone: Start: 12-31-2023 End: 12-31-2023 Patient encounter procedure MD Angle Nicolas Work Phone: [facility] Work Phone: Start: 10-29-2023 End: 10-29-2023 ambulatory MD Angle Nicolas Work Phone: [facility] Work Phone: Start: 10-29-2023 End: 10-29-2023 Patient encounter procedure MD Angle Nicolas Work Phone: [facility] Work Phone: Start: 10-24-2023 End: 10-24-2023 Emergency department patient visit Paola Banks Facility:[facility] Start: 10-24-2023 End: 10-24-2023 Emergency department patient visit MD Angle Nicolas Work Phone: [facility] Work Phone: Start: 07-18-2021 End: 10-17-2021 Recurring ANGLE NICOLAS [facility] Start: 07-08-2021 End: 07-09-[address] ANGLE NICOLAS Facility:[facility] Start: 10-27-2020 End: 10-28-[address] ANGLE NICOLAS Facility:[facility] Procedures Date Procedure Procedure Detail Performing Clinician fransisco removed left leg ANGLE NICOLAS Plan of Treatment Date Care Activity Detail Author Comprehensive metabo lic 2000 panel - Serum or Plasma [facility] MG Breast - bilatera l Screening [facility] Microalbumin [Mass/v olume] in Urine [facility] Patient Education High Blood Pre ssure ED Conjunctivitis ([facility]) ED Nosebleeds ED [facility] Work Phone: Patient referral [facility] Work Phone: [facility] Immunizations Immunization Date Immunization Notes Care Provider Fa oanh 07-07-2020 pneumococcal conjuga te vaccine, 13 valent MD Angle Nicolas Work Phone: [facility] 04-05-2017 tetanus and diphther ia toxoids, adsorbed, preservative free, for adult use (5 Lf of tetanus toxoid and 2 Lf of diphtheria toxoid) MD Angle Nicolas Work Phone: [facility] Payers Date Payer Category Payer Medicare [id number] 2023 Self-pay [id number] 1960 Unknown [id number] 1955 Unknown [id number] 1955 Unknown [id number] Medicare Medicare [id number] Medicare [employer] Dual Adv VOC [id number] Private Health Insurance [id number] Private Health Insurance [employer] Insurance [place] [id number] Unknown MMO [id number] Unknown [employer] MCR PFFS [id number] Social History Date Type Detail Facility Tobacco smoking status [facility] Sex Assigned At Female [facility] Start: 10-24-2023 End: 10-29-2023 Tobacco smoking status NHIS Ex-smoker (finding) [facility] Start: 1955 Sex Assigned At Female F [facility] Start: 07-28-2024 Sex Female (finding) [facility] Hospital Discharge instructions 10-24-2023 Note Date & Type Note Facility 10-24-2023 Hospital Discharge instructions Additional Instructions Start taking your hydrochlorothiazide every morning Use the Maxitrol eyedrops 1 drop in the right eye every 3 hours while awake for 7 days Humidifier at bedside Use your saline nasal spray to moisturize your nasal passages If nosebleed occurs may try Afrin nasal spray apply the clamp apply ice drink ice water if still bleeding after 30 minutes of clamping - return to the ER Follow-up with your doctor scheduled Sunday Return to the ER for headache dizziness fever vomiting or any other concerns [facility] Work Phone: Evaluation + Plan note Note Date & Type Note Facility Evaluation + Plan note No data available for this section [facility] Evaluation note Note Date & Type Note Facility Evaluation note No assessment information availa ble [facility] Work Phone: Evaluation note Note Date & Type Note Facility Evaluation note Diagnosis Onset Date Epistaxis acute Hypertension acute Hypothyroidism acute [facility] Work Phone: Evaluation note Note Date & Type Note Facility Evaluation note Diagnosis Onset Date Hypothyroidism acute Class 3 severe obesity with body mass index (BMI) of 40.0 to 44.9 in adult acute Essential (primary) [facility] [facility] Work Phone: Evaluation note Note Date & Type Note Facility Evaluation note Diagnosis Onset Date Resolution Essential (primary) hypertension acute July 28 8:49am Hypothyroidism acute July 282024 8:49am Medicare annual wellness visit, subsequent acute July 28, 2024 8:49am Screening mammogram for breast cancer acute July 28 8:49am [facility] Work Phone: Hospital Discharge instructions Note Date & Type Note Facility Hospital Discharge instructions No data available for this section [facility] Summary Purpose Family History Relationship Condition Age at Onset Recorded Date/T des Not Specified Malignant neoplasm Unknown daughter Diabetes mellitus Unknown father Diabetes mellitus Unknown Heart disease Unknown Relationship Condition Age at Onset Recorded Date/T des maternal grandmother Malignant neoplasm Unknown daughter Diabetes mellitus Unknown father Diabetes mellitus Unknown Heart disease Unknown Advance Directives Advance Directive Response Recorded Date/ Time Advance Directives No July 09, 2017 1:08pm Advance Directive Response Recorded Date/ Time Advance Directives No October 28 9:05am Advance Directive Response Recorded Date/ Time Advance Directives No October 28 8:05am Chief Complaint and Reason for Visit Chief Complaint high bp, bloody nose , R eye red Chief Complaint high bp, bloody nose , R eye red medication review Reason for Visit Epistaxis Hypertension Hypothyroidism Chief Complaint high bp, bloody nose , R eye red medication review 2-3 month f/u Reason for Visit Hypothyroidism Class 3 severe obesity with body mass index (BMI) of 40.0 to 44.9 in adult Essential (primary) hypertension Chief Complaint Admit Date Wellness July 28, 2024 8 :49am Reason for Visit Admit Date Essential (primary) hypertension July 28, 2024 8:49am Hypothyroidism July 28, 2024 8 :49am Medicare annual wellness visit, raymond nt July 28, 2024 8:49am Screening mammogram for breast cancer Emery espinoza 2024 8:49am Additional Source Comments INFORMATION SOURCE (unrecogn ized section and content) DATE CREATED AUTHOR 07/15/2021 [facility] DATE CREATED AUTHOR AUTHOR'S ORGANIZ ATION 10/18/2021 Mantilla Jerry [facility] DATE CREATED AUTHOR AUTHOR'S ORGANIZ ATION 11/03/2023 [facility] Care Teams (unrecognized sec tion and content) Team Status: Active Member Role Status Dates Angle Nicolas MD Primary Care Provider Active Team Status: Inactive Member Role Status Dates Angle Nicolas MD Primary Care Provider Active Start: October 24, 2023 End: October 24, 2023 Paola Banks [facility] Emergency Provider Active Start: October 24, 2023 End: October 24, 2023 Team Status: Inactive Member Role Status Dates Angle Nicolas MD Primary Care Provide r, Attending Provider Active Start: October 29, 2023 End: October 29, 2023 Team Status: Inactive Member Role Status Dates Angle Nicolas MD Primary Care Provide r, Attending Provider Active Start: December 31, 2023 End: December 31, 2023 Team Status: Inactive Member Role Status Dates Angle Nicolas MD Primary Care Provide r, Attending Provider Active Start: July 28, 2024 End: July 28, 2024 Goals (unrecognized section and content) Goals may be documented in a n alternate section FOR RECORDS PERTAINING TO PATIENTS WHO ARE OR HAVE BEEN ENROLLED IN A CHEMICAL DEPENDENCY/SUBSTANCEABUSE PROGRAM, SOME INFORMATION MAY BE OMITTED. This clinical summary was aggregated from multiple sources. Caution should be exercised in using it in the provision of clinical care. This summary normalizes information from multiple sources, and as a consequence, information in this document may materially change the coding, format and clinical context of patient data. In addition, data may be omitted in some cases. CLINICAL DECISIONS SHOULD BE BASED ON THE PRIMARY CLINICAL RECORDS. [employer] provides no warranty or guarantee of the accuracy or completeness of information in this document.
[2024-07-28 10:21] LABS: Creatinine Urine Random 278.64 mg/dL (20.00-300.00); Microalbumin Urine Random <1.3 mg/dL (<=30.0)
[2024-07-28 10:49] LABS: Alanine Aminotransferase 19 U/L (14-59); Albumin Level 3.7 g/dL (3.4-5.0); Alkaline Phosphatase 118 U/L (46-116); Anion Gap 11.5; Aspartate Amino Transferase 15 U/L (15-37); BUN Creatinine Ratio 13.8; Bilirubin Total 0.4 mg/dL (0.2-1.0); Calcium 9.1 mg/dL (8.5-10.1); Carbon Dioxide 31.3 mmol/L (21.0-32.0); Chloride 102 mmol/L (98-107); Chol HDL Ratio 2.8; Cholesterol 148 mg/dL (<=200); Estimated GFR (African America >60 (>=60 mL/min/1.73m^2); Estimated GFR (Non-African Ame 59 (>=60 mL/min/1.73m^2); Globulin 3.7 g/dL; Glucose 116 mg/dL (74-106); HDL Cholesterol 52 mg/dL (40-60); LDL Cholesterol Calculated 77.2 mg/dL; Potassium 3.8 mmol/L (3.5-5.1); Sodium 141 mmol/L (136-145); Thyroid Stimulating Hormone 3.232 uIU/mL (0.358-3.740); Total Protein 7.4 g/dL (6.4-8.2); Triglycerides 94 mg/dL (<=150); VLDL CHOLESTEROL 18.8 mg/dL
[2024-07-28 11:15] LABS: Free T4 1.11 ng/dL (0.76-1.46)
== END 2024-07-28 09:50 | disposition home or self-care (01) ==
LOC: LAB 09:52
PROVIDERS: PCP Family Medicine; Visit Provider Family Medicine
DX: D64.9 Anemia, unspecified (principal); E03.9 Hypothyroidism, unspecified; I10 Essential (primary) hypertension
CPT/HCPCS: 36415; 80053; 80061; 82043; 82570; 84439; 84443